=== PATIENT | female | born 1965 | race Caucasian/White ===

== ENCOUNTER → 2016-12-25 | Outpatient (CLI) | payer BC ==
--- NOTE | 2016-12-25 07:31 | MM ---
Reason for exam: additional evaluation requested from prior study. Last mammogram was performed 1 year ago. History: Patient has history of breast cancer at age 37 and is nulliparous. Implant in the left breast, February 2015. Reduction of the right breast, February 2015. Silicone gel implant in the left breast, December 2003. Reduction of the right breast, 2003. Mastectomy of the left breast, 2003. Took hormonal contraceptives for 10 years beginning at age 20. Took tamoxifen for 5 years beginning at age 37. Physical Findings: Nurse did not find any significant physical abnormalities on exam. MG 3D Diag Mammo W/Cad RT CC and MLO view(s) were taken of the right breast. Prior study comparison: December 21, 2015, right breast MG 3d diag mammo w/cad RT. July 28, 2014, right breast MG diagnostic mammo RT w CAD. The breast tissue is heterogeneously dense. This may lower the sensitivity of mammography. Finding: There is a stable typically benign equal density (isodense), circumscribed round mass in the middle position of the right breast. No significant changes in finding since December 21, 2015 and July 28, 2014. These results were verbally communicated with the patient and result sheet given to the patient on 12/25/16. ASSESSMENT: Benign, BI-RAD 2 RECOMMENDATION: Follow-up diagnostic mammogram of the right breast in 1 year.
== END | disposition home or self-care (01) ==
LOC: RADMAMWWP 06:51
PROVIDERS: ATTEND Surgery
DX: Z08 Encounter for follow-up examination after completed treatment for malignant neoplasm (principal); Z85.3 Personal history of malignant neoplasm of breast
CPT/HCPCS: G0206; G0279

== ENCOUNTER → 2017-12-31 | Outpatient (CLI) | payer BC ==
--- NOTE | 2017-12-31 08:50 | MM ---
Reason for exam: additional evaluation requested from prior study. Last mammogram was performed 1 year ago. History: Patient has history of breast cancer at age 37 and is nulliparous. Implant in the left breast, February 2015. Reduction of the right breast, February 2015. Silicone gel implant in the left breast, December 2003. Reduction of the right breast, 2003. Mastectomy of the left breast, 2003. Took hormonal contraceptives for 10 years beginning at age 20. Took tamoxifen for 5 years beginning at age 37. Physical Findings: Nurse did not find any significant physical abnormalities on exam. MG 3D Diag Mammo W/Cad RT CC and MLO view(s) were taken of the right breast. Prior study comparison: December 25, 2016, right breast MG 3d diag mammo w/cad RT. December 21, 2015, right breast MG 3d diag mammo w/cad RT. The breast tissue is heterogeneously dense. This may lower the sensitivity of mammography. There is a 7mm mass right upper outer quadrant 5cm from nipple at middle depth. These results were verbally communicated with the patient and result sheet given to the patient on 12/31/17. ASSESSMENT: Incomplete: need additional imaging evaluation, BI-RAD 0 RECOMMENDATION: Ultrasound of the right breast.
--- NOTE | 2017-12-31 09:02 | USB ---
Reason for exam: additional evaluation requested from abnormal screening. History: Patient has history of breast cancer at age 37 and is nulliparous. Implant in the left breast, February 2015. Reduction of the right breast, February 2015. Silicone gel implant in the left breast, December 2003. Reduction of the right breast, 2003. Mastectomy of the left breast, 2003. Took hormonal contraceptives for 10 years beginning at age 20. Took tamoxifen for 5 years beginning at age 37. US Breast Limited RT Right limited breast ultrasound including focal area of concern, retroareolar and axilla demonstrates a 0.8 x 1.6 x 0.8cm mixed lesion at 11 o'clock within dense tissue, corresponds to mammographic finding appearing similar to exams dating back to 2016 and possibly a fibroadenoma (T2 bright) on the MR of 2014. Precautionary 6 month follow up recommended. These results were verbally communicated with the patient and result sheet given to the patient on 12/31/17. ASSESSMENT: Probably benign, BI-RAD 3 RECOMMENDATION: Follow-up diagnostic mammogram of the right breast in 6 months.
== END | disposition home or self-care (01) ==
LOC: RADMAMWWP 06:59
PROVIDERS: ATTEND Surgery
DX: R92.8 Other abnormal and inconclusive findings on diagnostic imaging of breast (principal); Z85.3 Personal history of malignant neoplasm of breast
CPT/HCPCS: 77061; 77065

== ENCOUNTER → 2018-01-08 | Outpatient (CLI) | payer BC ==
[2018-01-08 08:54] VITALS: BP 145/89; PULSE 72; RESP 16; TEMP 98.4; BMI 33.7
--- NOTE | 2018-01-08 09:29 | P.GSHP ---
History of Present Illness H&P Date: 01/08/18 Chief Complaint: Prior history of ductal carcinoma in situ left breast The patient is a 52-year-old white female who presents for breast examination. Of significance is the fact that at 37 she underwent a left mastectomy for ductal carcinoma in situ. She did not need any radiation therapy. She did take tamoxifen for 5 years following this. She has subsequently undergone a right breast reduction mammoplasty and she has a silicone gel implant in the left side for breast reconstruction. The reconstruction was done the same year as her mastectomy but at a separate operation. The patient denies any history of trauma to her breast. She does not feel anything of concern in her breasts. No recent infections in the breast. The patient had a bilateral screening mammogram performed 12/31/2017. On that film there was a 7 mm mass in the right upper outer quadrant 5 cm from the nipple. The patient subsequently had an ultrasound which revealed a focal area of concern demonstrating a 0.8 x 1.6 cm mixed lesion at 11:00 with dense tissue corresponding to the mammographic finding. This was felt to appear similar to exams dating back to 2015 and possibly represent a fibroadenoma on an MRI examination of 2014. Radiographically it was recommended she have precautionary 6 month follow-up. The patient however has concerns related to the fact that she has had prior DCIS. Family history: 1.patient: DCIS Hormonal History: menarche: 13 : 0 menopause: Hysterectomy in 2010, still has her ovaries, done for bleeding Patient had fibroids and andomeiosi control pills: 10 years hormones: none Past surgical history: 1. Left breast mastectomy 2. Left breast reconstruction 3. Right breast reduction mammoplasty 4. Hysterectomy 5. Cholecystectomy 6. cervical fusion 7. right hand 8. right foot Past medical history: 1. Prediabetes Social History: smoke: none alcohol: none drugs: none Social history: - Constitutional Comment: BMI 33.7 Constitutional: Reports sweats - EENT Eyes: denies blurred vision, denies pain Ears: deny: decreased hearing, tinnitus Ears, nose, mouth and throat: Denies headache, Denies sore throat - Breasts Breasts: bilateral: as per HPI - Cardiovascular Comment: mitral valve prolapse, antibiotics when she goes to the dentist - Respiratory Respiratory: Denies cough, Denies 7 - Gastrointestinal Comment: had a colonoscopy 2013, [place] for ten years Gastrointestinal: Denies abdominal pain, Denies diarrhea, Denies nausea, Denies vomiting - Genitourinary (Female) Genitourinary: Denies dysuria, Denies hematuria - Menstruation Menstruation: Reports post hysterectomy - Musculoskeletal Musculoskeletal: Denies myalgias - Integumentary Integumentary: Denies pruritus, Denies rash - Neurological Neurological: Denies numbness, Denies weakness - Psychiatric Psychiatric: Denies anxiety, Denies depression - Endocrine Comment: prediabetic, hypothryoid - Hematologic/Lymphatic Comment: Baby aspirin - Allergic/Immunologic Comment: none Past Medical History Past Medical History: Cancer Additional Past Medical History / Comment(s): left breast 2003 History of Any Multi-Drug Resistant Organisms: None Reported Past Surgical History: Breast Surgery, Cholecystectomy, Hysterectomy Additional Past Surgical History / Comment(s): 2003 mastectomy with reconstruction, 2007 cholecystectomy, 2010 hysterectomy, 2011 bunion removed on right foot, 2012 cervical fusion, 2013 left silicone implant replaced, with right breast reduction. Smoking Status: Never smoker - Past Family History Father Family Medical History: Hypertension Mother Family Medical History: CVA/TIA, Hypertension Medications and Allergies Home Medications Medication Instructions Recorded Confirmed Type Aspirin [Adult Low Dose Aspirin EC] 81 mg PO QAM 01/08/18 01/08/18 History Levothyroxine Sodium [Levoxyl] 88 mcg PO QAM 01/08/18 01/08/18 History Multivitamins, Thera [Multivitamin 1 tab PO QAM 01/08/18 01/08/18 History (formulary)] [place]-3/Dha/Epa/Fish Oil [Fish Oil 1 each PO QAM 01/08/18 01/08/18 History 500 mg Softgel] Omeprazole [PriLOSEC] 20 mg PO AC-BRKFST 01/08/18 01/08/18 History Allergies Allergy/AdvReac Type Severity Reaction Status Date / Time No Known Allergies Allergy Verified 01/08/18 08:38 Surgical - Exam Vital Signs Temp Pulse Resp BP Pulse Ox 98.4 F 72 16 145/89 98 01/08/18 08:41 01/08/18 08:41 01/08/18 08:41 01/08/18 08:41 01/08/18 08:41 BMI 33.7 - General obese - Eyes PERRL - ENT no hearing loss, no congestion - Neck no masses, trachea midline - Respiratory normal respiratory effort, clear to auscultation - Cardiovascular Rhythm: regular Heart Sounds: normal: S1, S2 - Abdomen Abdomen: soft, non tender, no guarding, no rigid, no rebound - Integumentary no rash, no abnormal pigmentation - Neurologic no disoriented, no combative - Musculoskeletal normal gait, normal posture - Psychiatric oriented to time, oriented to person, oriented to place, speech is normal, memory intact Breast examination: Right breast: Multi-positional exam reveals no dominant masses or nodules of concern. The tissue was very dense. There are scars from prior reduction mammoplasty Right axilla: No adenopathy of concern Left breast: Multiple positional exam of the tissues reveals no evidence of recurrent cancer she is status post mastectomy on the left side with reconstruction with a silicone implant Left axilla: No adenopathy of concern Results Mammogram and ultrasound were reviewed with Dr. Dickerson Assessment and Plan Assessment: Impression/Plan: 1. 52-year-old white female with radiographic abnormality in the right breast. This is noted to be present as a 7 mm density in the right breast in the upper outer quadrant 5 cm from the nipple at middle depth. It is believed to also be noted on ultrasound as a 1.6 cm mixed lesion at 11:00 which has been present since 2016. It was possibly abraded area on an MRI in 2014. Precautionary six-month follow-up was initially recommended. However in view of the patient's history of prior DCIS after review with Dr. Dickerson it has been recommended that she undergo an ultrasound-guided core biopsy of the lesion seen on ultrasound. Following this a mammogram will be performed to assure that this is the same lesion that was seen on mammogram, if this is a separate lesion then she would undergo stereotactic core biopsy of the lesion seen radiographically on mammogram. 2. Prediabetic 3. Status post hysterectomy 4. Status post cervical fusion Risk and benefits of ultrasound-guided core biopsy been discussed with the patient and she wishes to proceed. Again following this procedure is recommended she undergo a repeat mammogram of the right side to assure that the nodule seen on mammogram is the same as that is been sampled rate by ultrasound. If it is a separate lesion we would consider stereo biopsy of the nodule seen. 5. Ultrasound-guided core biopsy area of concern in the right breast 6. Follow-up Dr. Oliveira 1 week following ultrasound core biopsy CC: DR. Melton
== END | disposition home or self-care (01) ==
LOC: WWCWWP 08:24
PROVIDERS: ATTEND Surgery
DX: Z53.9 Procedure and treatment not carried out, unspecified reason (principal)

== ENCOUNTER → 2018-01-25 | Day surgery (SDC) | payer BC ==
[2018-01-25 13:26] VITALS: RESP 16; BMI 33.4
[2018-01-25 15:27] VITALS: BP 123/80; PULSE 91; TEMP 98.1
--- NOTE | 2018-01-25 17:10 | USB ---
EXAMINATION TYPE: US biopsy breast VAD RT, MG diagnostic mammo RT wo CAD DATE OF EXAM: 01/25/2018 CLINICAL HISTORY: 52-year-old female R92.8 ABN MAMMO. Patient with history of prior left breast cance r. TECHNIQUE: Ultrasound guided core biopsy of right breast. COMPARISON: 12/31/2017 and 12/21/2015 FINDINGS: The procedure of ultrasound guided core biopsy was explained to the patient. Benefits, alt ernatives, and risks were discussed. An informed consent was then obtained. The patient was placed in supine positioning for imaging and for the procedure. The overlying skin w as prepped and draped in usual sterile fashion. Lidocaine buffered with bicarbonate was used as anes thetic into the skin and subcutaneous tissue up to area of concern in the 11:00 right breast. Under ultrasound guidance, a 13-gauge vacuum-assisted mammotome Elite biopsy gun device was used to o btain 6 core samples. Following this, a ribbon clip was left at the site of biopsy. The patient tolerated the procedure well without any immediate complication. The patient was kept in the radiology department for short stay after the procedure and then discharged home in stable condi tion. Postprocedure mammogram shows the clip in place in the upper outer quadrant. This does not correspond to the nodular focal asymmetry seen on mammogram but this nodular asymmetry is noted to be stable ba ck to 2016. IMPRESSION: Successful, uncomplicated ultrasound guided core biopsy of area of concern in the 11:00 right breast, full pathology results to follow.
== END ==
LOC: RADUSWWP 12:53
PROVIDERS: ATTEND Surgery
DX: N60.91 Unspecified benign mammary dysplasia of right breast (principal); R92.8 Other abnormal and inconclusive findings on diagnostic imaging of breast; Z85.3 Personal history of malignant neoplasm of breast
CPT/HCPCS: 88305; 77065; 19083; A4648; J2001

== ENCOUNTER → 2018-02-05 | Outpatient (CLI) | payer BC ==
[2018-02-05 14:05] VITALS: BP 143/73; PULSE 101; RESP 18; TEMP 98.6; BMI 33.5
--- NOTE | 2018-02-05 14:40 | P.GSHP ---
History of Present Illness H&P Date: 02/05/18 Chief Complaint: Radiographic abnormality right breast Jaleesa is a 52-year-old white female who is status post left mastectomy and reconstruction in 2003 for stage 0 DCIS of the left breast. On a routine mammogram performed this year of the right breast in December she was noted to have a 7 mm nodule approximately 5 cm from the nipple area in the upper outer quadrant. An ultrasound was performed which revealed a lesion which was also considered to be suspicious and ultrasound-guided core biopsy of the right breast was performed. That finding revealed focal atypical lobular hyperplasia involving 2 of 7 cores microscopically. It also revealed focal pseudo- angiomatous hyperplasia. The concern was that the 7 mm nodule seen on the mammogram was not the same as the area identified on the ultrasound. These films were reviewed with Dr. Carrera from radiology and it was his feeling that this was a separate and distinct area from that which was biopsied by ultrasound. The patient does not feel anything of concern in her breast. She has no nipple discharge or skin changes. She has no history of recent trauma or infection in the breast. Family history: patient: DCIS Hormonal History: menarche: 13 : none menopausal: hysterctomy 2010, still has ovaries BCP: 15 years hormones: none Past surgical history: 1. Left breast mastectomy with reconstruction 2. Cholecystectomy 3. Reduction mammoplasty of the right side 4. Implant replaced on the left and a second reduction on the right side 5. Cervical fusion 6. Bunion surgery on the right Past Medical History: 1. Hypothyroid 2. Heartburn Social history: Smoke: Negative Alcohol: Negative Drugs: Negative - Constitutional Constitutional: Reports sweats - EENT Eyes: denies blurred vision, denies pain Ears: bilateral: tinnitus, deny: decreased hearing Ears, nose, mouth and throat: Denies headache, Denies sore throat - Breasts Breasts: bilateral: as per HPI - Cardiovascular Comment: Mitral valve prolapse - Respiratory Respiratory: Denies cough, Denies 7 - Gastrointestinal Gastrointestinal: Denies abdominal pain, Denies diarrhea, Denies nausea, Denies vomiting - Genitourinary (Female) Genitourinary: Denies dysuria, Denies hematuria - Menstruation Comment: fibroids Menstruation: Reports post hysterectomy - Musculoskeletal Musculoskeletal: Denies myalgias - Integumentary Integumentary: Denies pruritus, Denies rash - Neurological Comment: Right hand trembles on occasion Neurological: Denies numbness, Denies weakness - Psychiatric Psychiatric: Denies anxiety, Denies depression - Endocrine Comment: hypothyroid - Hematologic/Lymphatic Comment: aspirin - Allergic/Immunologic Comment: none Past Medical History Past Medical History: Cancer, GERD/Reflux, Thyroid Disorder Additional Past Medical History / Comment(s): left breast 2003 History of Any Multi-Drug Resistant Organisms: None Reported Past Surgical History: Breast Surgery, Cholecystectomy, Hysterectomy Additional Past Surgical History / Comment(s): 2003 mastectomy with reconstruction left breast. 2003 right breast reduction. 2007 cholecystectomy. 2010 hysterectomy. 2011 bunion removed on right foot. 2012 cervical fusion. 2013 left silicone implant replaced, with right breast reduction. Past Anesthesia/Blood Transfusion Reactions: Motion Sickness Past Psychological History: No Psychological Hx Reported Smoking Status: Never smoker Past Alcohol Use History: None Reported Past Drug Use History: None Reported - Past Family History Father Family Medical History: Hypertension Mother Family Medical History: CVA/TIA, Hypertension Medications and Allergies Home Medications Medication Instructions Recorded Confirmed Type Aspirin [Adult Low Dose Aspirin EC] 81 mg PO QAM 01/08/18 02/05/18 History Levothyroxine Sodium [Levoxyl] 88 mcg PO QAM 01/08/18 02/05/18 History Multivitamins, Thera [Multivitamin 1 tab PO QAM 01/08/18 02/05/18 History (formulary)] [place]-3/Dha/Epa/Fish Oil [Fish Oil 1 each PO QAM 01/08/18 02/05/18 History 500 mg Softgel] Omeprazole [PriLOSEC] 20 mg PO AC-BRKFST 01/08/18 02/05/18 History Allergies Allergy/AdvReac Type Severity Reaction Status Date / Time No Known Allergies Allergy Verified 01/25/18 13:17 Surgical - Exam Vital Signs Temp Pulse Resp BP Pulse Ox 98.6 F 101 H 18 143/73 99 02/05/18 13:57 02/05/18 13:57 02/05/18 13:57 02/05/18 13:57 02/05/18 13:57 BMI 33.6 - General obese - Eyes normal ocular movement - ENT no hearing loss, no congestion - Neck no masses, trachea midline - Respiratory normal respiratory effort, clear to auscultation - Cardiovascular Rhythm: regular Heart Sounds: normal: S1, S2 - Abdomen Abdomen: soft - Integumentary normal turger - Musculoskeletal normal gait, normal posture - Psychiatric oriented to time, oriented to person, oriented to place, speech is normal, memory intact Breast examination: Right breast: Multiple positional exam no dominant masses or nodules of concern , well-healed scars from prior reduction mammoplasty Right axilla: No adenopathy of concern Left breast: The patient is status post mastectomy with reconstruction there is no evidence of any recurrent cancer on the chest wall Left axilla: No adenopathy of concern Results Jaleesa is status post ultrasound core biopsy of an area of concern in the right breast. This area revealed atypical lobular hyperplasia in 2 cores out of 7. The area of concern noted on the ultrasound appears to be a separate site as to the 7 mm nodular density seen on mammogram within the films are reviewed by Dr. Carrera. Therefore it is recommended that Jaleesa undergo a stereotactic core biopsy of the area of concern in the right breast seen on mammogram. Following this she will undergo needle localization and excisional biopsy of at least the area seen on ultrasound showing atypical lobular hyperplasia. Assessment and Plan Assessment: Impression: 1. Atypical lobular hyperplasia and ultrasound-guided core biopsy of the right breast 2. Mammographic abnormality distinct from the area biopsied by ultrasound 7 mm nodular density upper outer quadrant of the right breast 76 cm from the nipple areolar complex 3. Hypothyroid 4. Heartburn Plan: 1. Stereotactic core biopsy of area of concern in the right breast 2. Following stereotactic core biopsy results the patient will be scheduled for needle localization and excisional biopsy of the area of concern on ultrasound which revealed atypical lobular hyperplasia Jaleesa is aware of the risks and benefits of both procedures and the stereotactic core biopsy will be scheduled in the near future to be followed by needle localization and excisional biopsy of at minimum the area which was sampled by ultrasound showing atypical lobular hyperplasia. Cc: Dr. Luis Melton, Dr. Mainor Hardy
== END | disposition home or self-care (01) ==
LOC: WWCWWP 13:47
PROVIDERS: ATTEND Surgery
DX: Z53.9 Procedure and treatment not carried out, unspecified reason (principal)

== ENCOUNTER → 2018-02-11 | Day surgery (SDC) | payer BC ==
[2018-02-11 07:27] VITALS: BP 136/85; PULSE 76; RESP 16; TEMP 98; BMI 33.5
--- NOTE | 2018-02-11 08:45 | P.PN ---
Progress Note - Text Progress Note Date: 02/11/18 The patient was seen and evaluated in the right breast was evaluated for possible stereotactic core biopsy. Additional views were obtained of the right breast in the area initially for stereo biopsy today was felt to be stable over several years. However a new area at the 3 o'clock position between the upper and lower inner quadrants of the right breast was noted to be of some concern. This was attempted to be localized however was a vague nodular density and could not be well seen. Therefore it was recommended that she undergo a 3-D stereo biopsy at [facility]. The patient understands this and this is being scheduled. After we have results of the 3-D stereotactic core biopsy further recommendation as to excisional biopsy in the operating room of not only the initial area but this area as well will be made. The patient understands and this will be scheduled in the near future. Impression: 1. Abnormal mammographic finding the 3 o'clock position of the right breast 2. Area originally scheduled for sterotacticcc core biopsy today appears to have been stable over several years 3. Abnormal ultrasound core biopsy of the right breast revealing atypia Plan: 1. 3-D stereotactic core biopsy of area of 3:00 in the right breast 2. Excisional biopsy with needle localization of the area of atypia 3. Await results of 3-D stereo biopsy of 3:00 area of the right breast to determine if further intervention is needed at this site cc: Dr. Melton
--- NOTE | 2018-02-11 17:50 | MM ---
EXAMINATION TYPE: MG discontinued stereo core RT DATE OF EXAM: 02/11/2018 COMPARISON: 01/25/2018, 12/31/2017, 12/21/2015 CLINICAL HISTORY: 52-year-old female with personal history of left breast cancer with recent right-si ded ultrasound-guided core biopsy on 01/24/2018 showing ALH. Scheduled for excision. Additional mammo graphic mass for which the patient is referred for stereotactic biopsy as it is not seen on ultrasoun d. TECHNIQUE and FINDINGS: Given that the 9:00 lesion in question is optimally seen on the 3-D images, a lateral view was repeated in order to assess if a target could be successfully identified on 2D imag ing. A circumscribed, oval 8:00 mass at a middle depth is reidentified, and again, is suboptimally seen on the 2-D images. However, review of the patient's prior exams show that this was present back to 2015 . A suspicious focal asymmetry at the 3:00 position, anterior depth is now apparent. However, this is a lso optimally seen only on the 3-D images. This is not felt to be amenable to 2-D conventional stereo tactic core needle biopsy. Patient will be referred to [facility] for 3-D stereo biopsy for the 3:00 lesion at an a nterior depth. A medial approach can be utilized. Findings and impression were discussed with the patient. IMPRESSION: BI-RADS 4 - suspicious 1. 8:00 circumscribed mammographic mass optimally seen only on the 3-D images. Not amenable to conven tional 2-D stereo biopsy. In retrospect, this was present back to 2015 and biopsy for this lesion is being canceled. 2. However, a suspicious 3:00 focal asymmetry is seen in the anterior right breast during the repeat lateral view. This is also only seen optimally on the 3-D images and the patient will be referred to [facility] for 3-D stereo biopsy. 3. Note that the patient has recent ultrasound biopsy proven ALH and is scheduled for excision. Histo ry of left breast cancer. RECOMMENDATIONS: 1. Proceed with 3-D stereo biopsy of the 3:00 right breast focal asymmetry prior to scheduled excisio n of recent biopsy-proven ALH.
== END ==
LOC: RADMAMWWP 06:54
PROVIDERS: ATTEND Surgery
DX: R92.8 Other abnormal and inconclusive findings on diagnostic imaging of breast (principal); N63.13 Unspecified lump in the right breast, lower outer quadrant; N64.89 Other specified disorders of breast; Z53.8 Procedure and treatment not carried out for other reasons

== ENCOUNTER → 2018-04-02 | Outpatient (CLI) | payer BC ==
[2018-04-02 09:40] VITALS: BP 161/93; PULSE 88; RESP 18; TEMP 98.5; BMI 33.5
--- NOTE | 2018-04-02 10:26 | P.PN ---
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 On a routine mammogram performed in 2017 she was noted to have a 7 mm nodule proximal 5 cm from the nipple area in the upper outer quadrant region. An ultrasound was performed which revealed a lesion which was also considered to be suspicious and ultrasound-guided core biopsy of the right breast was performed. This finding revealed focal atypical lobular hyperplasia involving 2 of 7 cores microscopically. The patient was also noted to have a lesion on mammogram which was not felt to be the same as that identified on ultrasound. These films were reviewed with Dr. Carrera from radiology and secondary to the nature of the lesion in attempted stereo biopsy on a 3-D biopsy machinery [facility] was made. The lesion was not reproduced on that attempt. The patient does not feel anything of concern in her breast, however she has had some intermittent breast discomfort. She has no history of recent trauma or infection in the breast. Secondary to her history of DCIS, and her history now of atypical lobular hyperplasia she has requested that a mastectomy be performed of the right breast. Family history: Patient: DCIS Hormonal history: Menarche: 13 Pregnancies: None Menopause: Hysterectomy 2010, still has ovaries control pills: 15 years Hormones: None Past surgical history: 1. Left mastectomy with reconstruction 2. Cholecystectomy 3. Reduction mammoplasty of the right side 4. Implant replaced on the left and a second reduction on the right 5. Cervical fusion 6. Bunion surgery on the right Past medical history: 1. Hypothyroid 2. Heartburn Social history: Smoke: Negative Alcohol: Negative Drugs: Negative Review of systems: Constitutional: Reports sweats HEENT: Negative Lungs: Negative Heart: Mitral valve prolapse GI: Negative : Status post hysterectomy done for fibroids in a.m. don't miosis Musculoskeletal: Negative Psychiatric: Negative Objective - Vital Signs Vital signs: Vital Signs Temp 98.5 F 04/02/18 09:19 Pulse 88 04/02/18 09:19 Resp 18 04/02/18 09:19 BP 161/93 04/02/18 09:19 Pulse Ox 100 04/02/18 09:19 Intake & Output 04/01/18 04/02/18 04/02/18 18:59 06:59 18:59 Weight 94.347 kg - Exam BMI 33.6 - Constitutional General appearance: Present: average body habitus - EENT Eyes: Present: EOMI ENT: Present: hearing grossly normal - Neck Neck: Present: normal ROM - Respiratory Respiratory: bilateral: CTA - Cardiovascular Rhythm: regular Heart sounds: normal: S1, S2 - Gastrointestinal General gastrointestinal: Present: soft - Musculoskeletal Musculoskeletal: Present: gait normal - Psychiatric Psychiatric: Present: A&O x's 3, appropriate affect, intact judgment & insight - Additional findings Additional findings: Breast examination: Right breast: Well-healed scar from prior reduction mammoplasty no dominant masses or nodules of concern, breast is very dense Right axilla: No adenopathy of concern Left chest wall: Well-healed scars from prior breast reconstruction and mastectomy no evidence of recurrent disease Left axilla: No adenopathy of concern Assessment and Plan Assessment: Impression: 1. Patient with DCIS/status post mastectomy left breast with reconstruction 2. Atypical lobular hyperplasia right breast, status post prior right breast reduction 2 3. Hypothyroid 4. GERD Plan: 1. Right breast mastectomy with reconstruction as per Dr. Austin reyes 2. Medical management of medical conditions Had a long discussion with Jaleesa regarding risks and benefits of mastectomy and reconstruction. She understands at this time we do not believe that there is any cancer in the right breast. She has had an area of atypical hyperplasia, she has very dense breasts, and she has a questionable area which was noted on mammogram which could not be reproduced for stereo biopsy. The patient has had a prior history of ductal carcinoma in situ of the left breast. The patient does not want to continue surveillance and would prefer to have a mastectomy on the right side. Her prior plastic surgeon is Dr. Hardy and she wishes to have the mastectomy here and then reconstruction with Dr. Hardy at a later date. She understands risks and benefits including bleeding and infection reaction to the anesthetic and wishes to proceed. This will be scheduled in the near future. Cc: Linh
== END | disposition home or self-care (01) ==
LOC: WWCWWP 09:17
PROVIDERS: ATTEND Surgery
DX: Z53.9 Procedure and treatment not carried out, unspecified reason (principal)

== ENCOUNTER 2018-04-27 08:49 | Day surgery (SDC) | payer BC ==
[~2018-04-27 08:49] MED LIST: HEPARIN SODIUM,PORCINE 5,000 UNIT/ML 1 ML VIAL SQ ONE; HYDROmorphone 0.5 MG/0.5 ML SYRINGE IVP PRN; LIDOCAINE 1% 20 ML VIAL (10MG/ML) FOR IV START INTRADERMA PRN; MIDAZOLAM 2 MG/2 ML VIAL IV PRN; ONDANSETRON 4 MG/2 ML VIAL IVP ONE
[2018-04-27] MEDS ORDERED: SCOPOLAMINE 1.5MG/72HR PATCH TRANSDERM ONE (09:59)
[2018-04-27] MEDS: LACTATED RINGERS 1,000 ML IV SCH (10:11)
[2018-04-27] MEDS ORDERED: DEXAMETHASONE SOD PHOSPHATE 10 MG/ML 1 ML VIAL IV ONE (10:11)
[2018-04-27] MEDS ORDERED: HEPARIN SODIUM,PORCINE 5,000 UNIT/ML 1 ML VIAL SQ ONE (10:11)
[2018-04-27] MEDS ORDERED: ceFAZolin 2,000 MG in DEXTROSE/WATER 1 50ML.BAG IVPB STA (10:16)
[2018-04-27] MEDS ORDERED: ceFAZolin IN SWFI 2 GM/20 ML SYRINGE IVP STA (10:19)
[2018-04-27] MEDS ORDERED: SUCCINYLCHOLINE CHLORIDE 100 MG/5 ML SYR IV ONE (10:38)
[2018-04-27] MEDS ORDERED: MIDAZOLAM 2 MG/2 ML VIAL ONE (10:38)
[2018-04-27] MEDS ORDERED: fentaNYL (PF) 50 MCG/ML 2 ML AMP ONE (10:38)
[2018-04-27] MEDS ORDERED: PROPOFOL 10 MG/ML 20 ML VIAL IV ONE (10:38)
[2018-04-27] MEDS ORDERED: LIDOCAINE 1% INJ 10MG/ML (20 ML MDV) ONE (10:38)
[2018-04-27] MEDS ORDERED: LACTATED RINGERS 1,000 ML IV ONE (12:18)
[2018-04-27] MEDS ORDERED: NALOXONE 0.4 MG/ML 1 ML VIAL IV PRN (12:23)
[2018-04-27] MEDS ORDERED: HYDROcodone/APAP 5-325MG 1 EACH TAB PO PRN (12:23)
[2018-04-27] MEDS ORDERED: ONDANSETRON 4 MG/2 ML VIAL IVP PRN (12:23)
[2018-04-27] MEDS ORDERED: HYDROmorphone 1 MG/ML 1 ML SYRINGE IV PRN (12:23)
--- NOTE | 2018-04-27 12:23 | P.OP ---
Date of Procedure: 04/27/18 Preoperative Diagnosis: Prior left breast DCIS, right breast radiographic abnormality Postoperative Diagnosis: Same Procedure(s) Performed: Right skin sparing, simple mastectomy Anesthesia: LEONARDA Surgeon: Pat Gómez Estimated Blood Loss (ml): 20 IV fluids (ml): 700 Pathology: other (right breast) Condition: stable Disposition: PACU Indications for Procedure: Prior left breast mastectomy for DCIS, atypical radiograph right breast, status post right breast reduction mammoplasty, patient wishes right breast mastectomy Operative Findings: . Dense breast tissue Description of Procedure: The patient is a 52-year-old white female who presents for right breast mastectomy. The patient previously underwent a left breast mastectomy for DCIS. She underwent immediate reconstruction and also underwent a right breast reduction mammoplasty. She has done well until recently when radiographic abnormality was noted in the right breast. Attempt to do a biopsy was unsuccessful as the lesion cannot be again well identified. The patient was given the option of attempted stereo biopsy on an upright unit however stated that she did not want to do this and just wanted to proceed with a right breast mastectomy. The patient understands that we may not find any cancer in the right breast. Despite this she wishes to proceed with a right breast mastectomy. Patient was taken to the operating room and following induction of anesthesia the right breast was prepped and draped in a sterile fashion. Prior to coming to the operating room the cárdenas for the skin incisions were drawn on the breast using a marker. A scalpel was used to make the superior and inferior skin incisions. Using the plasma blade the superior and inferior flaps were developed. The medial and lateral flaps were developed as well. Hemostasis was attained using the Harmonic scalpel. Dissection was carried down to the chest wall. Dissection was then performed from medial to lateral off the pectoralis major muscle. The breast was removed. The wound was well irrigated. The wound was evaluated for hemostasis. After we were assured that hemostasis was attained a #10 Abilio-Krishnamurthy drain was placed. The deep tissues of the incision were closed using 3-0 Vicryl suture. This followed by 4-0 subcuticular skin closure. The drain was secured using a nylon suture. The patient tolerated the procedure in stable condition. All instrument and sponge counts were correct at the end of the case. A sterile dressing was placed. A Jhonny wrap was placed.
[2018-04-27] MEDS: DEXTROSE 5%-0.45% NACL 1,000 ML IV SCH ×2 (14:58→20:36)
[2018-04-27 15:10] VITALS: BMI 34.9
[2018-04-27] MEDS: HEPARIN SODIUM,PORCINE 5,000 UNIT/ML 1 ML VIAL SQ SCH (17:47)
[2018-04-28] MEDS: HEPARIN SODIUM,PORCINE 5,000 UNIT/ML 1 ML VIAL SQ SCH ×2 (00:12→09:31)
[2018-04-28] MEDS: DEXTROSE 5%-0.45% NACL 1,000 ML IV SCH (06:22)
[2018-04-28] MEDS: LACTATED RINGERS 1,000 ML IV SCH (06:27)
[2018-04-28] MEDS ORDERED: LEVOTHYROXINE 88 MCG TAB PO SCH (06:30)
[2018-04-28] MEDS ORDERED: PANTOPRAZOLE 40 MG TABLET PO SCH (07:30)
[2018-04-28 07:34] LABS: Basophils % (A) 0 %; Eosinophils % (A) 1 %; HCT 40.1 % (34.0-46.0); HGB 13.1 gm/dL (11.4-16.0); Lymphocytes # (A) 2.2 k/uL (1.0-4.8); Lymphocytes % (A) 25 %; MCH 31.3 pg (25.0-35.0); MCHC 32.6 g/dL (31.0-37.0); MCV 96.1 fL (80.0-100.0); Mean Platelet Volume 7.2; Monocytes # (A) 0.6 k/uL (0-1.0); Monocytes % (A) 6 %; Neutrophils # (A) 5.7 k/uL (1.3-7.7); Neutrophils % (A) 66 %; Platelet Count 288 k/uL (150-450); RBC 4.18 m/uL (3.80-5.40); RDW 13.1 % (11.5-15.5); WBC 8.7 k/uL (3.8-10.6)
--- NOTE | 2018-04-28 08:17 | P.PN ---
Subjective Progress Note Date: 04/28/18 Principal diagnosis: Postop day #1 right mastectomy Jaleesa is a 52-year-old white female postop day #1 right mastectomy. She is status post left mastectomy in the past for DCIS. She recently was noted to have radiographic abnormalities in the right breast for which biopsy was recommended. There was some difficulty identifying the lesion and the patient opted for a mastectomy on the right. She is postop day #1. She is doing well without any complaints. Her PAT drainage is serous noted to be 40 mL. She is tolerating diet without difficulty. Objective - Vital Signs Vital signs: Vital Signs Temp 98.5 F 04/28/18 06:28 Pulse 69 04/28/18 06:28 Resp 16 04/28/18 06:28 BP 135/79 04/28/18 06:28 Pulse Ox 96 04/28/18 06:28 Intake & Output 04/27/18 04/28/18 04/28/18 18:59 06:59 18:59 Intake Total 1300 Output Total 510 1570 Balance 790 -1570 Intake: IV 1300 Output: Drainage 10 30 Right Chest 10 30 Urine 480 1540 Estimated Blood Loss 20 Other: Voiding Method Toilet # Voids 1 1 - Constitutional General appearance: Present: obese - EENT Eyes: Present: EOMI ENT: Present: hearing grossly normal - Neck Neck: Present: normal ROM - Respiratory Respiratory: bilateral: CTA - Cardiovascular Rhythm: regular Heart sounds: normal: S1, S2 - Psychiatric Psychiatric: Present: A&O x's 3, appropriate affect, intact judgment & insight - Additional findings Additional findings: Incision: Clean and dry No evidence of any infection PAT drain serous in nature - Labs CBC & Chem 7: 04/28/18 07:11 Assessment and Plan Assessment: Impression: 1. Patient postop day #1 right mastectomy 2. Patient tolerating diet without difficulty 3. Patient pain under control Plan: 1. Discharge home to be followed as an outpatient 2. Teach patient drain care 3. Patient to wear Jhonny wrap unless taking shower 4. Patient may shower after 48 hours
--- NOTE | 2018-04-28 08:19 | P.DS ---
Providers Attending physician: Pat Gómez Consults: 04/27/18 12:26 Consult Physician Routine Consulting Provider: Everett Montiel Consult Reason/Comments: medical managment Do you want consulting provider notified?: Yes Primary care physician: Mahesh Melton Plan - Discharge Summary Discharge Rx Participant: No New Discharge Prescriptions: No Action Multivitamins, Thera [Multivitamin (formulary)] 1 tab PO QAM Aspirin [Adult Low Dose Aspirin EC] 81 mg PO QAM Omeprazole [PriLOSEC] 20 mg PO AC-BRKFST Levothyroxine Sodium [Levoxyl] 88 mcg PO QAM Rye-3/Dha/Epa/Fish Oil [Fish Oil 500 mg Softgel] 1 each PO QAM Discharge Medication List Aspirin [Adult Low Dose Aspirin EC] 81 mg PO QAM 01/08/18 [History] Levothyroxine Sodium [Levoxyl] 88 mcg PO QAM 01/08/18 [History] Multivitamins, Thera [Multivitamin (formulary)] 1 tab PO QAM 01/08/18 [History] Rye-3/Dha/Epa/Fish Oil [Fish Oil 500 mg Softgel] 1 each PO QAM 01/08/18 [ History] Omeprazole [PriLOSEC] 20 mg PO AC-BRKFST 01/08/18 [History] Follow up Appointment(s)/Referral(s): Pat Gómez MD [STAFF PHYSICIAN] - 1 Week Activity/Diet/Wound Care/Special Instructions: Do not drive until seen by Dr. Oliveira Teach patient drain care drain and record PAT output twice a day and as needed Patient may shower after 48 hours Discharge Disposition: HOME SELF-CARE
[2018-04-28 10:28] VITALS: BP 135/83; PULSE 84; RESP 20; TEMP 98.2
== END 2018-04-28 11:35 | disposition home or self-care (01) ==
LOC: OR 08:49 → 6PED 13:34 → OR 04-28 11:35
PROVIDERS: ATTEND Surgery
DX: N60.81 Other benign mammary dysplasias of right breast (principal); N60.11 Diffuse cystic mastopathy of right breast; N62 Hypertrophy of breast; K21.9 Gastro-esophageal reflux disease without esophagitis; E03.9 Hypothyroidism, unspecified; Z85.3 Personal history of malignant neoplasm of breast; Z79.82 Long term (current) use of aspirin; Z90.13 Acquired absence of bilateral breasts and nipples; Z79.2 Long term (current) use of antibiotics; Z79.890 Hormone replacement therapy; Z79.899 Other long term (current) drug therapy; Z90.49 Acquired absence of other specified parts of digestive tract; Z98.1 Arthrodesis status
CPT/HCPCS: 85025; 19303; J1644 ×2; J1100; J2405; J0690; 88307; 88309

== ENCOUNTER → 2018-05-06 | Outpatient (CLI) | payer BC ==
[2018-05-06 15:48] VITALS: BP 172/82; PULSE 100; RESP 18; TEMP 98.4; BMI 33.5
--- NOTE | 2018-05-06 16:06 | P.PN ---
Progress Note - Text Progress Note Date: 05/06/18 Jaleesa is a 52-year-old white female status post right breast mastectomy on . Her pathology was benign. She is going to have reconstruction done on elective basis. She has had no problems with any fever or chills. She also having some discomfort in the lower aspect of the incision related to activity. She states that this is improving. Physical Exam: Lungs: Clear Heart: Regular rate and rhythm Incision: Clean and dry Impression: 1. Patient doing well at this time 2. Drain serous and minimal 3. Pathology no malignant disease in the right breast Plan: 1. DC drain 2. Follow up here in 6 months 3. Follow-up with plastic surgery Dr. Beltre CC: Dr. Melton
== END ==
LOC: WWCWWP 15:26
PROVIDERS: ATTEND Surgery
DX: Z53.9 Procedure and treatment not carried out, unspecified reason (principal)

== ENCOUNTER → 2019-01-07 | Outpatient (CLI) | payer BC ==
[2019-01-07 11:21] VITALS: BP 155/89; PULSE 84; RESP 18; TEMP 98.2; BMI 33.9
--- NOTE | 2019-01-07 12:25 | P.PN ---
Subjective Progress Note Date: 01/07/19 Principal diagnosis: Ductal carcinoma in situ left breast/atypical lobular hyperplasia right breast The patient is a 53-year-old white female who presents for breast examination. Of significance is the fact that at 37 she underwent a left mastectomy for ductal carcinoma in situ. She did not need any radiation therapy. She did take tamoxifen for 5 years following this. She has subsequently undergone a right breast reduction mammoplasty and she has a silicone gel implant in the left side for breast reconstruction. The reconstruction was done the same year as her mastectomy but at a separate operation. Patient subsequently had core biopsy of the right breast in 2018 which revealed atypical lobular hyperplasia involving 2 of 7 cores. Patient was also noted to have a lesion on mammogram which was not felt to be the same as that identified on the ultrasound. After review of these films and her pathology the patient opted for a right breast mastectomy. This was performed on 04/27/2018 . She subsequently had an human resources talent manager placed in reconstruction performed. Implant that had been placed on the left is a textured implant which has subsequently been recalls. This has been associated with lymphoma. This has only been present for approximately 4 years. The prior implant had been replaced in 2014. At this time the patient does not feel any swelling associated with it and is not symptomatic. The implant that was recently placed on the right side is a [place] memory shape breast implant Reference #[id number] Patient at this time is doing well with no complaints of any lesions on the chest wall. Family history: 1. patient: DCIS Hormonal History: menarche: 13 : 0 menopause: Hysterectomy in 2010, still has her ovaries, done for bleeding Patient had fibroids and andomeiosi control pills: 10 years hormones: none Past surgical history: 1. Left breast mastectomy 2. Left breast reconstruction 3. Right breast reduction mammoplasty/ mastectomy 4. Hysterectomy 5. Cholecystectomy 6. cervical fusion 7. right hand 8. right foot 10. bilateral breast reconstruction Past medical history: 1. Prediabetes Social History: smoke: none alcohol: none drugs: none Social history: - Constitutional Comment: BMI 33.9 Constitutional: Reports sweats - EENT Eyes: denies blurred vision, denies pain Ears: deny: decreased hearing, tinnitus Ears, nose, mouth and throat: Denies headache, Denies sore throat - Breasts Breasts: bilateral: as per HPI - Cardiovascular Comment: mitral valve prolapse, antibiotics when she goes to the dentist - Respiratory Respiratory: Denies cough, - Gastrointestinal Comment: had a colonoscopy 2013, [place] for ten years Gastrointestinal: Denies abdominal pain, Denies diarrhea, Denies nausea, Denies vomiting - Genitourinary (Female) Genitourinary: Denies dysuria, Denies hematuria - Menstruation Menstruation: Reports post hysterectomy - Musculoskeletal Musculoskeletal: Denies myalgias - Integumentary Integumentary: Denies pruritus, Denies rash - Neurological Neurological: Denies numbness, Denies weakness - Psychiatric Psychiatric: Denies anxiety, Denies depression - Endocrine Comment: prediabetic, hypothryoid - Hematologic/Lymphatic Comment: Baby aspirin - Allergic/Immunologic Comment: none Past Medical History Past Medical History: Cancer Additional Past Medical History / Comment(s): left breast 2003 History of Any Multi-Drug Resistant Organisms: None Reported Past Surgical History: Breast Surgery, Cholecystectomy, Hysterectomy Additional Past Surgical History / Comment(s): 2003 mastectomy with reconstruction, 2007 cholecystectomy, 2010 hysterectomy, 2011 bunion removed on right foot, 2012 cervical fusion, 2013 left silicone implant replaced, with right breast reduction. Smoking Status: Never smoker - Past Family History Father Family Medical History: Hypertension Mother Family Medical History: CVA/TIA, Hypertension Objective - Vital Signs Vital signs: Vital Signs Temp 98.2 F 01/07/19 11:17 Pulse 84 01/07/19 11:17 Resp 18 01/07/19 11:17 BP 155/89 01/07/19 11:17 Pulse Ox 99 01/07/19 11:17 Intake & Output 01/06/19 01/07/19 01/07/19 18:59 06:59 18:59 Weight 95.254 kg - Exam BMI 33.9 - Constitutional General appearance: Present: average body habitus - EENT Eyes: Present: EOMI ENT: Present: hearing grossly normal - Neck Details: no adenopathy cervical Neck: Present: normal ROM - Respiratory Respiratory: bilateral: CTA - Cardiovascular Rhythm: regular Heart sounds: normal: S1, S2 - Gastrointestinal Gastrointestinal Comment(s): no guarding or rebound bowel sounds normal liver/ spleen not enlarged General gastrointestinal: Present: soft - Integumentary Integumentary: Present: normal turgor - Musculoskeletal Musculoskeletal: Present: gait normal - Psychiatric Psychiatric: Present: A&O x's 3, appropriate affect, intact judgment & insight - Additional findings Additional findings: breast examination: Right chest wall incision clean and dry well-healed Evidence of any cancer patient has a subpectoral implant in place status post mastectomy Right axilla: No adenopathy of concern Left chest wall: Incision clean and dry well-healed subpectoral implant in place status post mastectomy no evidence of any recurrent cancer Left axilla: No adenopathy of concern Assessment and Plan Assessment: Impression: 1. Patient status post bilateral mastectomies, left side 2003 for DCIS, right side 2018 for atypical hyperplasia 2. Left implant is textured which has been recalled and has some association with development of lymphoma 3. Patient no complaints at this time related to the breast surgeries Plan: 1. Continue close surveillance to assure that she has no evidence of tumor recurrence on the chest wall 2. Patient has finished tamoxifen 3. Ultrasound of the left breast implant area to rule out any fluid and as surveillance against lymphoma, patient will call for results 4. Patient to contact us if she has any questions related to pain or changes in the chest wall or implant area 5. follow up in one year CC: Dr. Melton Spent 25 minutes, > 50 % discussing care. We discussed the fact that despite the fact that she has had bilateral mastectomy not all breast tissue has been removed. We discussed the fact that close surveillance is still important since she had ductal carcinoma in situ and atypical hyperplasia. She did not have radiation therapy after her surgeries. She did have tamoxifen and is no longer taking the tamoxifen. It is not felt that is necessary for her to continue an antiestrogen at this time. We also discussed the fact that the left breast implant had been recalled we discussed the fact that there is an association with the type of implant and lymphoma. We discussed that surveillance would entail yearly ultrasound of this area. She does not feel anything of concern at this time doesn't become swollen will see us sooner.
== END ==
LOC: WWCWWP 10:01
PROVIDERS: ATTEND Surgery
DX: Z53.9 Procedure and treatment not carried out, unspecified reason (principal)

== ENCOUNTER → 2022-02-17 | Outpatient (CLI) | payer BC ==
[2022-02-17 07:46] LABS: African American GFR (CKD) >90 (>60 ml/min/1.73 sqM); Blood Urea Nitrogen 18 mg/dL (7-17); Non-African American GFR(CKD) >90 (>60 ml/min/1.73 sqM)
--- NOTE | 2022-02-17 08:39 | CT ---
EXAMINATION TYPE: CT chest wo/w con DATE OF EXAM: 02/17/2022 COMPARISON: None HISTORY: Chest pain CT DLP: 759.20 mGycm Automated exposure control for dose reduction was used. CONTRAST: CT scan of the chest is performed without and with IV Contrast, patient injected with 100 ml mL of Is ovue 300. FINDINGS: LUNGS: The lungs are grossly clear, there is no concerning parenchymal mass or nodule identified. P ost radiation therapy changes left upper lobe anteriorly. There is no pleural effusion or pneumothora x seen. The tracheobronchial tree is patent. MEDIASTINUM: There are no greater than 1 cm hilar or mediastinal lymph nodes. No pericardial effusi on is seen. Thoracic aorta is of normal caliber. The heart is not enlarged. UPPER ABDOMEN: Hepatic steatosis. Cholecystectomy clips in place. OTHER: Bilateral breast implants in place. Surgical clips left axilla. IMPRESSION: 1. Post radiation therapy change left upper lobe anteriorly. The lungs are otherwise clear.
== END | disposition home or self-care (01) ==
LOC: RADCTMAIN 07:07
PROVIDERS: ATTEND Family Medicine
DX: R07.9 Chest pain, unspecified (principal); Z92.3 Personal history of irradiation
CPT/HCPCS: 82565; 84520; 71270; 36415; Q9967

== ENCOUNTER 2023-04-14 06:39 | Day surgery (SDC) | payer BC ==
[2023-04-09 17:52] VITALS: BMI 34.6
[~2023-04-14 06:39] MED LIST changes: -HEPARIN SODIUM,PORCINE 5,000 UNIT/ML 1 ML VIAL SQ ONE; -HYDROmorphone 0.5 MG/0.5 ML SYRINGE IVP PRN; +LIDOCAINE 1% (10MG/ML) FOR IV START INTRADERMA PRN; -LIDOCAINE 1% 20 ML VIAL (10MG/ML) FOR IV START INTRADERMA PRN; -MIDAZOLAM 2 MG/2 ML VIAL IV PRN; -ONDANSETRON 4 MG/2 ML VIAL IVP ONE
[2023-04-14 07:30] LABS: Glucose,Whole Blood 166 mg/dL (70-110)
[2023-04-14] MEDS: LACTATED RINGERS 1,000 ML IV SCH (07:30)
[2023-04-14 07:34] VITALS: RESP 16; TEMP 98.4
[2023-04-14] MEDS ORDERED: PROPOFOL 10 MG/ML 20 ML VIAL IV ONE (08:24)
--- NOTE | 2023-04-14 08:41 | P.PCN ---
Date of Procedure: 04/14/23 Procedure(s) Performed: BRIEF HISTORY: Patient is a 57-year-old pleasant white female scheduled for an elective colonoscopy as a part of screeningfor colon cancer. PROCEDURE PERFORMED: Colonoscopy with biopsy and snare polypectomy. PREOPERATIVE DIAGNOSIS: Screening for colon cancer. IV sedation per Anesthesia. PROCEDURE: After informed consent was obtained, the patient, was brought into the endoscopy unit. IV sedation was administered by Anesthesia under continuous monitoring. Digital rectal examination was normal. Initially the Olympus CF-160 flexible video colonoscope was then inserted in the rectum, gradually advanced into the cecum without any difficulty. Careful examination was performed as the scope was gradually being withdrawn. Ileocecal valve and the appendiceal orifice were visualized and appeared normal. Prep was excellent. Mucosa of the cecum, appeared normal. Ascending colon there was a 5 mm and 6 mm polyp that was removed by cold snare polypectomy. In the transverse colon there was a 3-4 mm sessile polyp removed by cold biopsy. Rest of the ascending colon, transverse colon, descending colon, sigmoid colon, and rectum appeared normal. Retroflexion was performed in the rectum and no lesions were seen. The patient tolerated the procedure well. IMPRESSION: 3-4 mm transverse colon polyp status post cold biopsy 5 mm and 6 mm reasoning colon polyp status post cold snare polypectomy Rest of the colon appeared normal RECOMMENDATIONS: Findings of this examination were discussed with the patient as well as her family. She was advised to follow with the biopsy results. If the biopsy result, she can have a repeat colonoscopy in 5 years.
[2023-04-14 09:06] VITALS: BP 142/85; PULSE 77
== END 2023-04-14 09:22 | disposition home or self-care (01) ==
LOC: ORWHC2ENDO 06:39
PROVIDERS: ATTEND Internal Medicine Gastroenterology
DX: Z12.11 Encounter for screening for malignant neoplasm of colon (principal); K63.5 Polyp of colon; K21.9 Gastro-esophageal reflux disease without esophagitis; I34.1 Nonrheumatic mitral (valve) prolapse; G47.33 Obstructive sleep apnea (adult) (pediatric); E11.9 Type 2 diabetes mellitus without complications; E07.9 Disorder of thyroid, unspecified; Z87.442 Personal history of urinary calculi; M43.22 Fusion of spine, cervical region; Z79.84 Long term (current) use of oral hypoglycemic drugs; Z85.3 Personal history of malignant neoplasm of breast; Z79.890 Hormone replacement therapy; Z79.899 Other long term (current) drug therapy; Z91.048 Other nonmedicinal substance allergy status
CPT/HCPCS: 88305; 45380; 45385; J2704